=== PATIENT | female | born 1995 | race Caucasian/White ===

== ENCOUNTER 2022-05-19 17:14 | Emergency (ER) | payer BC ==
[~2022-05-19] VITALS: Ht 157.5 cm; Wt 59.0 kg
--- NOTE | 2022-05-19 17:40 | NUR ---
BIBS C/O HIP, BACK, NECK PAIN P/S 04/27 S/P, +[employer] SAL[employer] REPRESENTATIVE, -LOC, -AB. IN ROOM AIR AND DENIES SOB. RESPIRATION REGULAR AND UNLABORED. WILL CONTINUE TO MONITOR THE PATIENT.
[2022-05-19] MEDS ORDERED: CYCLOBENZAPRINE 10 MG TABLET PO ONE (18:30)
[2022-05-19] MEDS ORDERED: KETOROLAC TROMETHAMINE INJ 60 MG/2 ML VIAL IM ONE (18:30)
[2022-05-19] MEDS ORDERED: KETOROLAC TROMETHAMINE INJ 30 MG/ML VIAL ONE (18:33)
[2022-05-19] MEDS ORDERED: CYCLOBENZAPRINE 10 MG TABLET ONE (18:33)
[2022-05-19] MEDS ORDERED: CYCL10TA9 PO (19:29)
[2022-05-19] MEDS ORDERED: NAPR-1009 PO (19:29)
[2022-05-19] MEDS ORDERED: HYDROCODONE/APAP 5/325MG TABLET ONE (19:34)
--- NOTE | 2022-05-19 19:42 | NUR ---
Patient discharged to home in stable condition. Written and verbal after care instructions given. Patient verbalizes understanding of instruction.
[2022-05-19 19:44] VITALS: BP 129/77
[2022-05-19] MEDS ORDERED: HYDROCODONE/APAP 5/325MG TABLET PO ONE (20:00)
== END 2022-05-19 19:45 | disposition home or self-care (01) ==
LOC: ER 18:08
DX: S39.012A Strain of muscle, fascia and tendon of lower back, initial encounter (principal); S16.1XXA Strain of muscle, fascia and tendon at neck level, initial encounter; S80.01XA Contusion of right knee, initial encounter; M62.830 Muscle spasm of back; R42 Dizziness and giddiness; V29.9XXA Motorcycle rider (driver) (passenger) injured in unspecified traffic accident, initial encounter; Y93.89 Activity, other specified; Y92.89 Other specified places as the place of occurrence of the external cause; Y99.8 Other external cause status
CPT/HCPCS: 99284; 71045; 96372; 72100; 73502; 84703; 72170; J1885